=== PATIENT | female | born 1980 | race Caucasian/White ===

== ENCOUNTER 2019-09-27 23:12 | Inpatient (IN) | payer MEDICAID ==
[~2019-09-27] VITALS: Ht 167.6 cm; Wt 72.6 kg
[2019-09-27 23:16] VITALS: BP 150/72
--- NOTE | 2019-09-28 00:16 | NUR ---
PT W/C ASSISTED TO BED 8
[2019-09-28] MEDS ORDERED: MECLIZINE 25 MG TAB PO ONE (01:00)
[2019-09-28] MEDS ORDERED: DIAZEPAM 5 MG TAB PO ONE (01:00)
[2019-09-28] MEDS ORDERED: NACL 0.9% 1,000 ML IV ONE ×2 (01:00→03:55)
[2019-09-28 01:12] LABS: BASOPHILS # (AUTO) 0.1 K/uL (0.00-0.22); BASOPHILS % (AUTO) 0.4 % (0.0-2.0); EOSINOPHILS # (AUTO) 0.1 K/uL (0-0.4); EOSINOPHILS % (AUTO) 0.6 % (0.0-4.0); HEMATOCRIT 37.5 % (36-48); HEMOGLOBIN 12.7 g/dL (12.0-16.0); LYMPHOCYTES # (AUTO) 1.2 K/uL (2.5-16.5); MEAN CORPUSCULAR HEMOGLOBIN 29 pg (27-31); MEAN CORPUSCULAR HGB CONC 34 g/dL (33-37); MEAN CORPUSCULAR VOLUME 84.1 fL (80-94); MONOCYTES # (AUTO) 0.7 K/uL (0.8-1.0); MONOCYTES % (AUTO) 4.8 % (1.7-9.3); NEUTROPHILS # (AUTO) 12.5 K/uL (1.8-7.7); NEUTROPHILS % (AUTO) 85.8 % (42.2-75.2); PLATELET COUNT (AUTO) 242 K/uL (140-450); RED BLOOD CELL COUNT(AUTO) 4.46 MIL/uL (4.20-5.40); RED CELL DISTRIBUTION WIDTH 13.8 % (11.6-13.7); WHITE BLOOD COUNT (AUTO) 14.5 K/uL (4.8-10.8)
[2019-09-28 01:29] LABS: LYMPHOCYTES % (AUTO) 8.4 % (20.5-51.1)
[2019-09-28 01:36] LABS: ALBUMIN 3.7 g/dL (3.4-5.0); ANION GAP 12.2 (8-16); CARBON DIOXIDE 27.5 mmol/L (21-32); CREATININE 0.5 mg/dL (0.6-1.3); FREE T4 (FREE THYROXINE) 1.07 ng/dL (0.76-1.46); POTASSIUM 3.7 mmol/L (3.5-5.1); THYROID STIMULATING HORMONE 0.79 uIU/mL (0.34-3.74); TOTAL BILIRUBIN 0.2 mg/dL (0.0-1.0)
--- NOTE | 2019-09-28 01:42 | NUR ---
BIBA C/O N,V, DIZZINESS X 2 HRS AGO. HAD VOMITTING ( >6X). ABD IS SOFT, ROUND, NONTENDER, ACTIVE BS. A & O X4. PT IS MILDLY WEAK AND SAYS SHES UNABLE TO WALK BECUASE SHES DIZZY. VSS. NKA. NO PMH.
--- NOTE | 2019-09-28 02:03 | NUR ---
Silas shook in [facility] - 09/28/19 at 0230 by BRIT PT TRANSFER TO CT VIA W/C.
--- NOTE | 2019-09-28 02:03 | NUR ---
PT TRAAnamikaNFER TO CT VIA [facility]ARD
--- NOTE | 2019-09-28 02:20 | NUR ---
P0T RETURNED BACK FROM CT VIA [facility].
--- NOTE | 2019-09-28 03:33 | NUR ---
Dr. Wesley examining patient.
[2019-09-28] MEDS ORDERED: ONDANSETRON 4 MG/2 ML VIAL IVP ONE (03:55)
[2019-09-28] MEDS ORDERED: ONDANSETRON 4 MG/2 ML VIAL IM/IVP PRN (04:20)
[2019-09-28] MEDS ORDERED: HYDROcodone/APAP 7.5/325 MG 1 TAB PO PRN (04:20)
[2019-09-28] MEDS ORDERED: DOCUSATE SODIUM 100 MG GELCAP PO PRN (04:20)
[2019-09-28] MEDS ORDERED: ACETAMINOPHEN 325 MG TAB PO PRN (04:20)
--- NOTE | 2019-09-28 04:34 | NUR ---
XR AT BEDSIDE.
[2019-09-28 05:25] VITALS: BP 100/65
--- NOTE | 2019-09-28 05:25 | NUR ---
PT ARRIVED AT UNIT, RECEIVED BEDSIDE REPORT FROM ER NURSE CAYETANO RN, PT STABLE, NO DISTRESS NOTED, MRSA SWAB TAKEN, ORIENT PT TO ROOM, BED, CALL LIGHT, V/S TAKEN. PT SLEEPING, CALL LIGHT WITHIN REACH.
--- NOTE | 2019-09-28 05:25 | NUR ---
Patient will be admitted to care of DR. WHEELER. Admited to M/S. Will go to room 120A. Belongings list completed. Report to JAXSON SÁNCHEZDIRECTOR OF EXHIBIT DEVELOPMENT.
[2019-09-28 05:34] LABS: PROTHROMBIN TIME 9.7 secs (10.8-13.4)
[2019-09-28] MEDS ORDERED: MECLIZINE 25 MG TAB PO PRN ×2 (06:00→08:35)
[2019-09-28 06:13] LABS: CHOL/HDL RATIO 3.4 (1-4.5); MAGNESIUM 1.9 mg/dL (1.8-2.4); PHOSPHORUS 3.9 mg/dL (2.5-4.9)
--- NOTE | 2019-09-28 07:30 | NUR ---
ENDORSED PT TO DAY SHIFT NURSE CHRISTIANO MAGDALENO, PT STABLE, NO DISTRESS NOTED, CALL LIGHT WITHIN REACH.
--- NOTE | 2019-09-28 07:31 | NUR ---
RECEIVED REPORT FROM SECOND OPERATOR NURSE UYEN FOR CONTINUITY OF CARE. PT IN STABLE CONDITION. RESPIRATIONS EVEN AND UNLABORED. IV INTACT AND PATENT. SAFETY MEASURES IN PLACE. BED IN LOW POSITION. BED ALARM ON. CALL LIGHT AT BEDSIDE. WILL CONTINUE TO MONITOR.
[2019-09-28 08:00] VITALS: BP 92/57
[2019-09-28] MEDS ORDERED: LACTULOSE 20 GM/30 ML UDC PO SCH (09:00)
[2019-09-28] MEDS: DEXT 5% /NACL 0.9% 1,000 ML IV SCH ×2 (09:04→14:20)
--- NOTE | 2019-09-28 09:09 | NUR ---
GAVE ORDERED DUE MEDICATIONS AT THIS TIME. PT TOLERATED WELL.
[2019-09-28 09:39] LABS: BASOPHILS % (AUTO) 0.5 % (0.0-2.0); EOSINOPHILS % (AUTO) 0.1 % (0.0-4.0); HEMOGLOBIN 11.9 g/dL (12.0-16.0); LYMPHOCYTES # (AUTO) 1.5 K/uL (2.5-16.5); LYMPHOCYTES % (AUTO) 14.5 % (20.5-51.1); MEAN CORPUSCULAR HEMOGLOBIN 29 pg (27-31); MEAN CORPUSCULAR HGB CONC 34 g/dL (33-37); MEAN CORPUSCULAR VOLUME 85.2 fL (80-94); MONOCYTES # (AUTO) 0.5 K/uL (0.8-1.0); MONOCYTES % (AUTO) 4.5 % (1.7-9.3); NEUTROPHILS # (AUTO) 8.1 K/uL (1.8-7.7); NEUTROPHILS % (AUTO) 80.4 % (42.2-75.2); PLATELET COUNT (AUTO) 226 K/uL (140-450); RED CELL DISTRIBUTION WIDTH 13.3 % (11.6-13.7)
[2019-09-28 09:49] LABS: ANION GAP 11.9 (8-16); CARBON DIOXIDE 26.7 mmol/L (21-32); CREATININE 0.5 mg/dL (0.6-1.3); POTASSIUM 3.6 mmol/L (3.5-5.1)
--- NOTE | 2019-09-28 11:33 | NUR ---
PT SLEEPING AT THIS TIME. RESPIRATIONS EVEN AND UNLABORED. BED IN LOW POSITION. BED ALARM ON. CALL LIGHT AT BEDSIDE. WILL CONTINUE TO MONITOR.
--- NOTE | 2019-09-28 13:35 | NUR ---
DC [age] YRS OLD FEMALE PATIENT ADMITTED FROM HOME WITH THE DX OF VERTIGO , PT HAS A HX OF MIGRAINE BUT NO OTHER CHRONIC MEDICAL HX . CT HEAD (-) CAROTID US (-) AND ECHO PENDING ADMINISTERED MECLIZINE NEEDED. DC PLAN TO GO HOME WHEN STABLE CM TO FOLLOW.
--- NOTE | 2019-09-28 13:42 | NUR ---
PT SLEEPING AT THIS TIME. RESPIRATIONS EVEN AND UNLABORED. BED IN LOW POSITION. BED ALARM ON. CALL LIGHT AT BEDSIDE. WILL CONTINUE TO MONITOR.
--- NOTE | 2019-09-28 15:01 | NUR ---
FAMILY AT BEDSIDE. PT SLEEPING AT THIS TIME. RESPIRATIONS EVEN AND UNLABORED. BED IN LOW POSITION. BED ALARM ON. CALL LIGHT AT BEDSIDE. WILL CONTINUE TO MONITOR.
[2019-09-28] MEDS: NACL 0.9% 1,000 ML IV SCH (15:51)
[2019-09-28 16:00] VITALS: BP 92/57
--- NOTE | 2019-09-28 16:15 | NUR ---
ASSISTED PT TO RESTROOM AT THIS TIME. PT TOLERATE WELL. PT C/O DIZZINESS AT THIS TIME.
--- NOTE | 2019-09-28 16:25 | NUR ---
TOOK URINE SPECIMEN TO LAB AT THIS TIME.
[2019-09-28 16:39] LABS: APPEARANCE,URINE CLEAR (CLEAR); BILIRUBIN,URINE NEGATIVE (NEGATIVE); BLOOD, URINE 3+ (NEGATIVE); COLOR,URINE YELLOW (YELLOW); LEUKOCYTE ESTERASE ,URINE NEGATIVE (NEGATIVE); NITRITE, URINE NEGATIVE (NEGATIVE); UGLUCOSE NEGATIVE (NEGATIVE)
[2019-09-28 17:00] LABS: BARBITURATE, URINE NEG. ng/ml (NEG <=200); BENZODIAZEPINE, URINE NEG. ng/mL (NEG <=200); CANNABINOID, URINE NEG. ng/mL (NEG <=50); COCAINE, URINE NEG. ng/mL (NEG <=300); OPIATE, URINE NEG. ng/mL (NEG <=2000); PHENCYCLIDINE SCREEN,URINE NEG. ng/mL (NEG <=25)
--- NOTE | 2019-09-28 19:30 | NUR ---
RECEIVED BEDSIDE REPORT FROM DAY RN. PT IS SLEEPING COMFORTABLY IN BED. CHEST RISE AND FALL NOTED. FAMILY IS AT BEDSIDE. PT ON FALL PRECAUTION DX VERTIGO. IV ON RAC 20G IVF PER ORDERS. SKIN IS INTACT. SAFETY MEASURES ARE IN PLACE. CALL LIGHT IS WITHIN REACH. WILL CONTINUE TO MONITOR.
--- NOTE | 2019-09-28 19:30 | NUR ---
GAVE REPORT TO ACADEMIC REGISTRAR NURSE FELIPA FOR CONTINUITY OF CARE. PT IN STABLE CONDITION.
--- NOTE | 2019-09-28 20:54 | NUR ---
PATIENT AWAKE WATCHING TV WITH FAMILY AT BEDSIDE. DENIES ANY DISCOMFORT. EDUCATED PT TO CALL NURSE WHEN NEED TO STAND UP VERBALIZED UNDERSTANDING. WILL CONTINUE TO MONITOR.
--- NOTE | 2019-09-28 22:30 | NUR ---
PATIENT IS SLEEPING COMFORTABLY IN BED. CHEST RISE AND FALL. NO S/SF DISTRESS NOTED. CALL LIGHT IS WITHIN REACH. WILL CONTINUE TO MONITOR.
[2019-09-29] VITALS: BP 103/58
--- NOTE | 2019-09-29 | NUR ---
VITAL SIGNS ARE WITHIN NORMAL LIMITS. NO S/S OF DISTRESS. CALL LIGHT IS WITHIN REACH.
--- NOTE | 2019-09-29 02:00 | NUR ---
PT IS ASLEEP IN BED. CHEST RISE AND FALL. NO S/S OF DISTRESS NOTED. SAFETY MEASURES ARE IN PLACE. CALL LIGHT IS WITHIN REACH. WILL CONTINUE TO MONITOR.
--- NOTE | 2019-09-29 04:14 | NUR ---
PATIENT IS SLEEPING COMFORTABLY IN BED. NO S/S OF DISTRESS NOTED. CALL LIGHT IS WITHIN REACH
[2019-09-29 05:00] VITALS: BP 101/50
[2019-09-29 05:03] VITALS: BP 113/70
--- NOTE | 2019-09-29 05:08 | NUR ---
ADMINISTERED PRN NORCO FOR C/C OF HEADACHE 01/17. PT TOLERATED WELL. ALL SAFETY MEASURES ARE IN PLACE. WILL CONTINUE TO MONITOR.
[2019-09-29 05:10] VITALS: BP 121/77
[2019-09-29] MEDS ORDERED: INFLUENZA VACCINE QUAD 0.5 ML SYR IMVAC PRN (06:10)
[2019-09-29 06:23] LABS: BASOPHILS # (AUTO) 0.1 K/uL (0.00-0.22); BASOPHILS % (AUTO) 0.7 % (0.0-2.0); EOSINOPHILS # (AUTO) 0.2 K/uL (0-0.4); EOSINOPHILS % (AUTO) 1.9 % (0.0-4.0); HEMATOCRIT 34.2 % (36-48); HEMOGLOBIN 11.8 g/dL (12.0-16.0); LYMPHOCYTES # (AUTO) 1.8 K/uL (2.5-16.5); LYMPHOCYTES % (AUTO) 19.7 % (20.5-51.1); MEAN CORPUSCULAR HEMOGLOBIN 30 pg (27-31); MEAN CORPUSCULAR HGB CONC 34 g/dL (33-37); MEAN CORPUSCULAR VOLUME 86.1 fL (80-94); MONOCYTES # (AUTO) 0.7 K/uL (0.8-1.0); MONOCYTES % (AUTO) 7.5 % (1.7-9.3); NEUTROPHILS # (AUTO) 6.3 K/uL (1.8-7.7); NEUTROPHILS % (AUTO) 70.2 % (42.2-75.2); PLATELET COUNT (AUTO) 223 K/uL (140-450); RED BLOOD CELL COUNT(AUTO) 3.98 MIL/uL (4.20-5.40); RED CELL DISTRIBUTION WIDTH 13.3 % (11.6-13.7)
[2019-09-29 06:30] LABS: ANION GAP 10.7 (8-16); CARBON DIOXIDE 26.6 mmol/L (21-32); CREATININE 0.5 mg/dL (0.6-1.3); POTASSIUM 3.3 mmol/L (3.5-5.1)
[2019-09-29] MEDS: NACL 0.9% 1,000 ML IV SCH (06:32)
[2019-09-29] MEDS ORDERED: MECLIZINE 25 MG TAB PO ONE (06:35)
[2019-09-29] MEDS ORDERED: POTASSIUM CHLORIDE 10 MEQ TABER PO ONE (06:35)
--- NOTE | 2019-09-29 07:30 | NUR ---
GAVE BEDSIDE REPORT TO DAY RN. PT ENDORSED IN STABLE CONDITION.
--- NOTE | 2019-09-29 07:37 | NUR ---
RECEIVED BEDSIDE REPORT FROM BUTTONHOLE MARKER RN FOR CONTINUITY OF CARE. PT IS AAOX4, LAYING IN BED BUT COOPERATIVE. DENIES DISTRESS. PT ON FALL PRECAUTION DUE TO VERTIGO. IV ON RAC 20G IVF PER ORDERS. SKIN IS INTACT. SAFETY MEASURES ARE IN PLACE. DISCUSSED POC WITH PT NAD PT VERBALIZED UNDERSTANDING. CALL LIGHT IS WITHIN REACH. BED IN LOW POSITION. WILL CONTINUE TO MONITOR.
[2019-09-29 08:15] VITALS: BP 104/76
[2019-09-29] MEDS ORDERED: MECL-311 PO (08:56)
[2019-09-29] MEDS ORDERED: ONDA4TAB PO (08:56)
--- NOTE | 2019-09-29 09:09 | NUR ---
Kettle Fry Cook Operator Note: Basic Screen: Yes High Risk DC Screen Cucumber: TACO Mon Relationship: [id number] Pre-Admission Living Arrangements: SNF Current Home Health Name/Tel: N/A Current DME/02 Name/Tel: N/A Current Hospice Name/Tel: N/A Current Dialysis Name/Tel: N/A Healthcare Decision Maker: Patient Advance Directive No Physician Orders for Life Sustaining Treatment Form No Patient/Family Have Educational Needs No Information Taught: Advance Directive Person Taught: Patient Teaching Tools: Verbal Factors Affecting Learning: None Participation Level: Refused Evaluation: Verbalizes Understanding Needs Additional Education: No Discipline: Case Mgt/Social Svcs Tentative Discharge Plan/Destination: No Needs Identified Will require assistance post discharge: No Referred to Mixer Operator: No Tentative Discharge Plan Summary: Patient is a 39-year-old male admitted female admitted for vertigo. Patient has PMHX of migraines. Patient was admitted from home where patient lives with and 4 kids. patient reported no history of mental health and no history of substance abuse. Patient was accompanied by at bedside. Tentative plan after discharge is to return home. No further needs identified. Signature: PRATIMA Hassan Date: Sep 28, 2019 Time: 16:23
--- NOTE | 2019-09-29 09:47 | NUR ---
PT RESTING IN BED. ALL NEEDS MET. WILL CONTINUE TO ROUND FREQUENTLY ON PT. BED IN LOW POSITION, CALL LIGHT WITHIN REACH. WILL CONTINUE TO ROUND ON PT.
--- NOTE | 2019-09-29 11:24 | NUR ---
PT RESTING IN BED. AT BEDSIDE. WILL CONTINUE TO ROUND ON PT.
--- NOTE | 2019-09-29 12:53 | NUR ---
P.T. NOTES D/C FROM P.T. AFTER TX, MAY AMBULATE INSIDE ROOM AD HORACIO. Addendum: 09/29/19 at 1254 by Kesha Vidal PT Amended: Links added.
--- NOTE | 2019-09-29 13:45 | NUR ---
PT DISCHARGED HOME [facility]O SELF-CARE. EXPLAINED DISCHARGE TEACHING TO PT. DISCUSSED NEW MEDICATIONS ZOFRAN AND MECLIZINE WITH PT. PT VERBALIZED UNDERSTANDING. PT IV REMOVED WITH TIP INTACT. FLU VACCINE GIVEN. PT TOLERATED WELL. ALL PERSONAL BELONGINGS PACKED UP AND GIVEN TO . PT LEFT IN STABLE CONDITION ACCOMPANIED BY . ID BAND REMOVED AND PLACED IN SHRED BIN.
--- NOTE | 2019-09-29 16:11 | NUR ---
SPOKE WITH [employer] AT [phone]. PER DISPATCHER, COMPANY IS ONLY CONTRACTED WITH [facility]. DOLLY MEJIA WORKER MADE AWARE.
== END 2019-09-29 13:50 | disposition home or self-care (01) | DRG 48 ==
LOC: MED 23:12 → MTU 09-28 04:20
PROVIDERS: ADMIT General Practice; ATTEND General Practice
DX: G90.8 Other disorders of autonomic nervous system (principal); E72.20 Disorder of urea cycle metabolism, unspecified; R31.9 Hematuria, unspecified; D72.829 Elevated white blood cell count, unspecified; E87.6 Hypokalemia; E78.5 Hyperlipidemia, unspecified
CPT/HCPCS: 36415; 70450; 71045; 80048; 80053; 80305; 81003; 82140; 82150; 83036; 83690; 83735; 83880; 84100; 84439; 84443; 84484; 84703; 85025; 85610; 85730; 87081; 93880; 96361; 96374; 97112; 97116; 97161-GP; 97530; 99285; J2405; J7030; J7042; J8597; Q0092